=== PATIENT | male | born 1980 | race African-American/Black ===

== ENCOUNTER 2017-02-14 17:41 | Emergency (ER) | payer OTHER ==
[~2017-02-14] VITALS: Ht 182.9 cm; Wt 113.4 kg
[~2017-02-14 17:41] MED LIST: ACET-73 PO
--- NOTE | 2017-02-14 18:34 | NUR ---
Patient discharged to home in stable conditon. Written and verbal after care instructions given. Patient verbalizes understanding of instructions.
== END 2017-02-14 18:35 | disposition home or self-care (01) ==
LOC: ER 17:48
DX: M54.5 Low back pain (principal); Z88.0 Allergy status to penicillin
CPT/HCPCS: 72110; A4663

== ENCOUNTER 2017-03-09 19:58 | Emergency (ER) | payer OTHER ==
[~2017-03-09] VITALS: Ht 182.9 cm; Wt 113.4 kg
[2017-03-09] MEDS ORDERED: DEXAMETHASONE SOD PHOSPHATE 4 MG INJ IM ONE (20:15)
--- NOTE | 2017-03-09 20:23 | NUR ---
Patient discharged to home in stable conditon. Written and verbal after care instructions given. Patient verbalizes understanding of instructions.
[2017-03-09] MEDS ORDERED: DEXAMETHASONE SOD PHOSPHATE 4 MG INJ ONE (20:30)
== END 2017-03-09 20:24 | disposition home or self-care (01) ==
LOC: ER 20:00
DX: M54.41 Lumbago with sciatica, right side (principal); Z88.0 Allergy status to penicillin
CPT/HCPCS: 96372; 99283; A4663; J1100

== ENCOUNTER 2017-07-02 21:48 | Emergency (ER) | payer OTHER ==
[~2017-07-02] VITALS: Ht 182.9 cm; Wt 113.4 kg
--- NOTE | 2017-07-02 23:37 | NUR ---
DR. CUNNINGHAM AT BEDSIDE FOR MSE.
--- NOTE | 2017-07-02 23:51 | NUR ---
Patient discharged to home in stable conditon. Written and verbal after care instructions given. Patient verbalizes understanding of instructions. PATIENT LEFT WITH STABLE GAIT.
[2017-07-02 23:52] VITALS: BP 148/90
== END 2017-07-02 23:53 | disposition home or self-care (01) ==
LOC: ER 21:48
DX: M54.41 Lumbago with sciatica, right side (principal); Z88.0 Allergy status to penicillin; Z88.6 Allergy status to analgesic agent
CPT/HCPCS: 99282; A4663

== ENCOUNTER 2024-11-08 08:18 | Emergency (ER) | payer OTHER ==
[~2024-11-08] VITALS: Ht 182.9 cm; Wt 113.4 kg
[2024-11-08] MEDS ORDERED: SILVER SULFADIAZINE 1% CREAM 50 GM TP ONE (09:01)
[2024-11-08] MEDS ORDERED: SILV50CR32 TP (09:02)
[2024-11-08] MEDS: SILVER SULFADIAZINE 1% CREAM 50 GM TP ONE (09:13)
[2024-11-08 09:30] VITALS: BP 174/91; TEMP 97.9; O2SAT 99
== END 2024-11-08 09:31 | disposition home or self-care (01) ==
LOC: ER 08:18
DX: T24.212A Burn of second degree of left thigh, initial encounter (principal); Z88.0 Allergy status to penicillin; Z88.6 Allergy status to analgesic agent; Z88.7 Allergy status to serum and vaccine; X10.0XXA Contact with hot drinks, initial encounter; Y93.89 Activity, other specified; Y92.89 Other specified places as the place of occurrence of the external cause; Y99.8 Other external cause status
CPT/HCPCS: 16020; A4606; A4663